=== PATIENT | male | born 1945 | race Caucasian/White ===

== ENCOUNTER 2022-04-29 05:11 | Inpatient (IN) | payer OTHER ==
[2022-04-29 05:25] VITALS: BMI 17.6
[2022-04-29] MEDS ORDERED: LACTATED RINGERS SOLUTION 1000 ML INFUS.BAG IV ONE (05:54)
[2022-04-29] MEDS ORDERED: ACETAMINOPHEN 1000 MG/100 ML BAG IVPB ONE (05:54)
[2022-04-29] MEDS ORDERED: morphine CARPU-JECT 2 MG/1 ML DISP.SYRIN IVPUSH ONE (06:05)
[2022-04-29] MEDS ORDERED: ONDANSETRON 4 MG/2 ML VIAL IVPUSH ONE (06:05)
[2022-04-29] MEDS ORDERED: ACETAMINOPHEN INJECTION 100 ML IVPB ONE (06:12)
[2022-04-29] MEDS ORDERED: ONDANSETRON 4 MG/2 ML VIAL ONE (06:12)
[2022-04-29 06:47] LABS: BASO % 0.6 % (0-2.0); EOS % 1.4 % (0-4.5); HEMOGLOBIN 13.2 GM/dL (11.7-16.9); LYMPH % 13.5 % (8-40); MCH 30.5 pg (25.7-33.7); MCHC 33.7 g/dl (32.0-35.9); MEAN CELL VOLUME 90.4 fl (80-96); MEAN PLT VOLUME 8.8 fl (7.5-11.1); MONO % 9.5 % (3.8-10.2); PLATELET COUNT 379 10^3/uL (134-434); RBC 4.31 M/mm3 (4.00-5.60); WHITE BLOOD COUNT 11.2 K/mm3 (4.0-10.0)
[2022-04-29 06:51] LABS: EPI CELLS >36 /uL (0-25.1); HYALINE CASTS 6 /uL (0-3.1); URINE APPEARANCE CLOUDY; URINE BACTERIA 11 /uL (0-1359); URINE BILIRUBIN NEGATIVE (NEGATIVE); URINE COLOR YELLOW; URINE GLUCOSE (UA) NEGATIVE (NEGATIVE); URINE KETONE 1+ (NEGATIVE); URINE LEUK ESTERASE 2+ (NEGATIVE); URINE NITRITE NEGATIVE (NEGATIVE); URINE PROTEIN 1+ (NEGATIVE); URINE RBC 49 /uL (0-23.9); URINE UROBILINOGEN 0.2 mg/dL (0.2-1.0); URINE WBC 353 /uL (0-25.8)
[2022-04-29 06:59] LABS: INR 1.3 (0.83-1.09)
[2022-04-29 07:02] LABS: ACTIVATED PTT 36.5 SECONDS (25.2-36.5)
[2022-04-29 07:12] LABS: CALCIUM 9.2 mg/dL (8.5-10.1)
[2022-04-29 07:13] LABS: ALBUMIN 3.2 g/dl (3.4-5.0); BLOOD UREA NITROGEN 33.1 mg/dL (7-18); MAGNESIUM 2.3 mg/dL (1.8-2.4)
[2022-04-29 07:16] LABS: CREATININE 1.4 mg/dL (0.55-1.3); PHOSPHOROUS 3.3 mg/dL (2.5-4.9)
[2022-04-29 07:17] LABS: BILIRUBIN,TOTAL 0.4 mg/dL (0.2-1); TOT PROT 6.4 g/dl (6.4-8.2)
[2022-04-29] MEDS ORDERED: CEFTRIAXONE 1 GM in DEXTROSE 5%-WATER - 100 ML IVPB ONE (09:18)
[2022-04-29] MEDS ORDERED: CEFTRIAXONE 1 GM/50 ML BAG ONE (09:24)
[2022-04-29] MEDS ORDERED: TAMSULOSIN HCL 0.4 MG CAP PO ONE (11:00)
[2022-04-29] MEDS ORDERED: TAMSULOSIN HCL 0.4 MG CAP ONE (12:00)
[2022-04-29] MEDS: INSULIN SLIDING SCALE (NOVOLOG) 1 VIAL SQ SCH ×3 (12:07→23:56)
[2022-04-29] MEDS ORDERED: FINASTERIDE 5 MG TABLET (FP) PO ONE (13:36)
[2022-04-29] MEDS ORDERED: HEPARIN NA (PORCINE) 5,000 UNITS/ML 1ML VIAL ONE ×2 (14:10→23:30)
[2022-04-29] MEDS: HEPARIN NA (PORCINE) 5,000 UNITS/ML 1ML VIAL SQ SCH ×2 (14:20→23:56)
[2022-04-30] MEDS: HEPARIN NA (PORCINE) 5,000 UNITS/ML 1ML VIAL SQ SCH ×3 (05:49→21:38)
[2022-04-30] MEDS: INSULIN SLIDING SCALE (NOVOLOG) 1 VIAL SQ SCH ×4 (06:03→21:38)
[2022-04-30] MEDS ORDERED: TAMSULOSIN HCL 0.4 MG CAP PO SCH (08:30)
[2022-04-30] MEDS ORDERED: cefTRIAXone SODIUM 1 GM VIAL ONE (08:59)
[2022-04-30] MEDS ORDERED: DEXTROSE 5%-WATER - 50 ML IVPB ONE (08:59)
[2022-04-30 09:02] LABS: BASO % 0.5 % (0-2.0); EOS % 0.4 % (0-4.5); HEMATOCRIT 33.9 % (35.4-49); HEMOGLOBIN 11.6 GM/dL (11.7-16.9); LYMPH % 10.8 % (8-40); MCH 30.9 pg (25.7-33.7); MCHC 34.3 g/dl (32.0-35.9); MEAN CELL VOLUME 90.2 fl (80-96); MEAN PLT VOLUME 8.9 fl (7.5-11.1); MONO % 13.3 % (3.8-10.2); PLATELET COUNT 352 10^3/uL (134-434); RBC 3.76 M/mm3 (4.00-5.60); WHITE BLOOD COUNT 12.9 K/mm3 (4.0-10.0)
[2022-04-30 09:31] LABS: CALCIUM 8.8 mg/dL (8.5-10.1)
[2022-04-30 09:32] LABS: ALBUMIN 2.6 g/dl (3.4-5.0); BLOOD UREA NITROGEN 29.4 mg/dL (7-18); MAGNESIUM 2.3 mg/dL (1.8-2.4)
[2022-04-30 09:34] LABS: PHOSPHOROUS 2.8 mg/dL (2.5-4.9)
[2022-04-30 09:35] LABS: CREATININE 1.6 mg/dL (0.55-1.3)
[2022-04-30 09:36] LABS: BILIRUBIN,TOTAL 0.4 mg/dL (0.2-1); TOT PROT 5.4 g/dl (6.4-8.2)
[2022-04-30] MEDS: CEFTRIAXONE 1 GM in DEXTROSE 5%-WATER - 50 ML IVPB SCH (09:50)
[2022-04-30] MEDS: FINASTERIDE 5 MG TABLET (FP) PO SCH (09:51)
[2022-04-30 11:37] LABS: CALCIUM 8.5 mg/dL (8.5-10.1)
[2022-04-30 11:38] LABS: ALBUMIN 2.6 g/dl (3.4-5.0); BLOOD UREA NITROGEN 27.1 mg/dL (7-18); MAGNESIUM 2.3 mg/dL (1.8-2.4)
[2022-04-30 11:41] LABS: CREATININE 1.5 mg/dL (0.55-1.3)
[2022-04-30 11:43] LABS: BILIRUBIN,TOTAL 0.4 mg/dL (0.2-1); TOT PROT 5.5 g/dl (6.4-8.2)
[2022-04-30] MEDS: SODIUM CHLORIDE 0.45% 1,000 ML IV SCH (17:04)
[2022-04-30] MEDS: TAMSULOSIN HCL 0.4 MG CAP PO SCH (21:38)
[2022-05-01] MEDS: HEPARIN NA (PORCINE) 5,000 UNITS/ML 1ML VIAL SQ SCH ×2 (06:09→14:21)
[2022-05-01] MEDS: INSULIN SLIDING SCALE (NOVOLOG) 1 VIAL SQ SCH ×3 (06:10→17:03)
[2022-05-01] MEDS ORDERED: cefTRIAXone SODIUM 1 GM VIAL ONE (08:46)
[2022-05-01] MEDS ORDERED: DEXTROSE 5%-WATER - 50 ML IVPB ONE (08:46)
[2022-05-01 10:11] LABS: BASO % 0.5 % (0-2.0); EOS % 0.5 % (0-4.5); HEMATOCRIT 32.6 % (35.4-49); HEMOGLOBIN 11.1 GM/dL (11.7-16.9); LYMPH % 11.9 % (8-40); MCH 30.7 pg (25.7-33.7); MCHC 34.1 g/dl (32.0-35.9); MEAN CELL VOLUME 90.1 fl (80-96); MEAN PLT VOLUME 9.1 fl (7.5-11.1); MONO % 10.5 % (3.8-10.2); NEUT % 76.6 % (42.8-82.8); PLATELET COUNT 358 10^3/uL (134-434); RBC 3.62 M/mm3 (4.00-5.60); RDW 13.7 % (11.9-15.9); WHITE BLOOD COUNT 11.8 K/mm3 (4.0-10.0)
[2022-05-01 10:16] LABS: ALBUMIN 2.3 g/dl (3.4-5.0); BLOOD UREA NITROGEN 24.6 mg/dL (7-18)
[2022-05-01 10:19] LABS: CREATININE 1.4 mg/dL (0.55-1.3)
[2022-05-01 10:21] LABS: BILIRUBIN,TOTAL 0.4 mg/dL (0.2-1)
[2022-05-01] MEDS: FINASTERIDE 5 MG TABLET (FP) PO SCH (10:31)
[2022-05-01] MEDS: CEFTRIAXONE 1 GM in DEXTROSE 5%-WATER - 50 ML IVPB SCH (10:31)
[2022-05-01] MEDS: TAMSULOSIN HCL 0.4 MG CAP PO SCH (10:31)
[2022-05-01] MEDS: SODIUM CHLORIDE 0.45% 1,000 ML IV SCH ×2 (12:03→16:17)
[2022-05-01 15:37] VITALS: BP 132/60; PULSE 68; TEMP 98.1
== END 2022-05-01 17:40 | disposition home or self-care (01) | DRG 463 ==
LOC: JER 05:11 → JERBED 10:27 → J5S 04-30 03:02
PROVIDERS: ADMIT Internal Medicine; ATTEND Internal Medicine
DX: N10 Acute pyelonephritis (principal); E78.5 Hyperlipidemia, unspecified; F03.90 Unspecified dementia, unspecified severity, without behavioral disturbance, psychotic disturbance, mood disturbance, and anxiety; K40.90 Unilateral inguinal hernia, without obstruction or gangrene, not specified as recurrent; N17.9 Acute kidney failure, unspecified; U07.1 COVID-19; N13.30 Unspecified hydronephrosis; N39.0 Urinary tract infection, site not specified; I12.9 Hypertensive chronic kidney disease with stage 1 through stage 4 chronic kidney disease, or unspecified chronic kidney disease; E11.22 Type 2 diabetes mellitus with diabetic chronic kidney disease; N18.9 Chronic kidney disease, unspecified; N32.0 Bladder-neck obstruction; D72.829 Elevated white blood cell count, unspecified; N40.1 Benign prostatic hyperplasia with lower urinary tract symptoms; R33.8 Other retention of urine; R63.0 Anorexia; Z68.1 Body mass index [BMI] 19.9 or less, adult
CPT/HCPCS: 36415; 71045-TC-FY; 74176-TC; 76775-TC; 76856-TC; 80053; 81003; 82436; 82728; 82962; 83605; 83735; 84100; 84133; 84153; 84300; 84484; 85025; 85379; 85610; 85730; 86140; 86900; 87040; 87086; 93005; 93010; 99285-25; C9803-CS; J1644; U0003; U0005

== ENCOUNTER 2022-05-06 11:04 | Emergency (ER) | payer OTHER ==
[2022-05-06 11:26] VITALS: BP 118/73; PULSE 95; TEMP 98.4; BMI 17.3
[2022-05-06 14:00] LABS: BASO % 0.4 % (0-2.0); EOS % 0.9 % (0-4.5); HEMATOCRIT 31.6 % (35.4-49); HEMOGLOBIN 10.6 GM/dL (11.7-16.9); LYMPH % 15.6 % (8-40); MCH 30.8 pg (25.7-33.7); MCHC 33.5 g/dl (32.0-35.9); MEAN CELL VOLUME 91.9 fl (80-96); MEAN PLT VOLUME 9.3 fl (7.5-11.1); MONO % 6.4 % (3.8-10.2); NEUT % 76.7 % (42.8-82.8); PLATELET COUNT 391 10^3/uL (134-434); RBC 3.43 M/mm3 (4.00-5.60); RDW 14.4 % (11.9-15.9); WHITE BLOOD COUNT 12.6 K/mm3 (4.0-10.0)
[2022-05-06] MEDS ORDERED: ACETAMINOPHEN 325 MG TABLET (FP) PO ONE (14:04)
[2022-05-06 14:14] LABS: CALCIUM 8.7 mg/dL (8.5-10.1)
[2022-05-06 14:15] LABS: ALBUMIN 2.7 g/dl (3.4-5.0); BLOOD UREA NITROGEN 26.2 mg/dL (7-18)
[2022-05-06 14:18] LABS: CREATININE 1.3 mg/dL (0.55-1.3)
[2022-05-06 14:20] LABS: BILIRUBIN,TOTAL 0.3 mg/dL (0.2-1); TOT PROT 5.6 g/dl (6.4-8.2)
[2022-05-06] MEDS ORDERED: ACETAMINOPHEN 325 MG TABLET (FP) ONE (15:04)
== END 2022-05-06 15:11 | disposition home or self-care (01) ==
LOC: JER 11:04
DX: R10.2 Pelvic and perineal pain (principal); N13.9 Obstructive and reflux uropathy, unspecified; N32.89 Other specified disorders of bladder
CPT/HCPCS: 36415; 80053; 85025; 99284-25